=== PATIENT | female | born 1955 | race Caucasian/White ===

== ENCOUNTER 2020-08-29 06:02 | Inpatient (IN) | payer BC ==
[~2020-08-29] VITALS: Ht 157.5 cm; Wt 91.7 kg
[2020-08-29] MEDS ORDERED: ACETAMINOPHEN IV 1000 MG/100ML (10MG/ML) IV ONE (06:45)
[2020-08-29] MEDS ORDERED: PREGABALIN CAPSULE 75 MG CAP PO ONE (06:45)
[2020-08-29] MEDS ORDERED: CELECOXIB 100 MG CAP PO ONE (06:45)
[2020-08-29] MEDS ORDERED: VANCOMYCIN HCL 1000 MG VL ONE ×2 (07:12→07:28)
[2020-08-29] MEDS ORDERED: GENTAMICIN SULF 80 MG/2 ML VIAL ONE (07:12)
[2020-08-29] MEDS ORDERED: PROPOFOL 10 MG/ML 20 ML IV ONE (07:24)
[2020-08-29] MEDS ORDERED: MIDAZOLAM HCL 1MG/1ML-2 ML VIAL ONE (07:24)
[2020-08-29] MEDS ORDERED: fentaNYL CITRATE 100 MCG/2 ML VL ONE ×3 (07:24→13:06)
[2020-08-29] MEDS ORDERED: TRANEXAMIC ACID 20 ML ONE (07:27)
[2020-08-29] MEDS ORDERED: BUPIVACAINE 0.25% INJ 50ML VIAL ONE (07:27)
[2020-08-29] MEDS ORDERED: EPINEPHrine HCL 1 MG/1 ML AMP ONE (07:33)
[2020-08-29] MEDS ORDERED: ROCURONIUM 10MG/ML 10ML VIAL IV ONE (07:51)
[2020-08-29] MEDS ORDERED: CLINDAMYCIN 900MG IV 50 ML IV ONE (08:19)
[2020-08-29] MEDS ORDERED: MORPHINE SULFATE 4 MG/ML SYR/VIAL IV PRN (09:30)
[2020-08-29] MEDS ORDERED: ONDANSETRON HCL 4 MG/2 ML VIAL IV PRN ×2 (09:30→10:00)
[2020-08-29] MEDS ORDERED: hydrALAZINE HCL 20 MG/ML VL IV PRN (09:30)
[2020-08-29] MEDS ORDERED: ePHEDrine SULFATE 50 MG/ML AMP IV PRN (09:30)
[2020-08-29] MEDS ORDERED: MORPHINE SULF(PF) 0.5MG/ML 10ML VIAL ONE (09:46)
[2020-08-29] MEDS ORDERED: ceFAZolin 1GM/50ML 50 ML IV SCH (10:00)
[2020-08-29] MEDS ORDERED: HYDROcodone-ACET 10/325MG TAB PO PRN (10:00)
[2020-08-29] MEDS ORDERED: HYDROmorphone HCL 2 MG/ML VL IV PRN (10:00)
[2020-08-29] MEDS ORDERED: BISACODYL 5 MG EC TAB PO PRN (10:00)
[2020-08-29] MEDS ORDERED: ACETAMINOPHEN 325 MG TAB PO PRN (10:00)
[2020-08-29] MEDS ORDERED: ePHEDrine SULFATE 50 MG/ML AMP ONE (13:11)
[2020-08-29 15:30] VITALS: BP 113/45
--- NOTE | 2020-08-29 15:30 | NUR ---
MS admit from OR NEERU EMMANUEL admitted to tele/MS after SBAR received. Patient oriented to ENA SANTACRUZRN primary RN, unit, room, bed, and unit policies regarding patient care and visiting hours. Bed in lowest/locked position, bed rails up x2, call light within reach. Patient weighed by bedscale and encouraged to call if they need something. All questions and concerns addressed, patient verbalized understanding.
[2020-08-29] MEDS ORDERED: INFLUENZA QUAD 2020-2021 0.5 ML SYRG IM ONE (16:15)
[2020-08-29 17:00] VITALS: BP 113/45
[2020-08-29] MEDS: KETOROLAC TROMETH 30 MG/ML 1ML VIAL IV SCH ×2 (17:32→22:30)
--- NOTE | 2020-08-29 19:30 | NUR ---
Opening Shift Note Assumed care of patient. Pt is awake and alert, oriented X 4. No S/S of respiratory distress noted. Pt denies pain at this time. Bed in lowest and locked position, side rails up X 2, call light is within reach. Huddleston is patent and intact, below the bladder level. POC discussed and pt instructed to call for assistance as needed. Will continue to monitor for changes Q1hr and PRN.
--- NOTE | 2020-08-29 19:55 | NUR ---
Diet and IV fluid Pt drinks water and tolerated dinner well. No abdominal distress, no pain. BSs are active. IV fluid locked.
[2020-08-29 20:00] VITALS: BP 110/51
[2020-08-29] MEDS: LACTATED RINGER'S 1,000 ML IV SCH (20:00)
[2020-08-29 22:00] VITALS: BP 110/51
[2020-08-29] MEDS: DOCUSATE SOD 100 MG CAP PO SCH (22:00)
[2020-08-30] MEDS: KETOROLAC TROMETH 30 MG/ML 1ML VIAL IV SCH ×4 (04:00→22:05)
[2020-08-30 04:46] VITALS: BP 117/47
[2020-08-30 05:46] LABS: Basophils # (auto) 0 10 ^3/uL (0-0.2); Basophils % (auto) 0.5 % (0.0-2.0); Eosinophils # (auto) 0.2 10 ^3/uL (0-0.8); Eosinophils % (auto) 2.3 % (0.0-7.0); Hematocrit 32.8 % (36.0-46.0); Hemoglobin 10.9 g/dL (12.2-16.2); Lymphocytes # (auto) 1.2 10 ^3/uL (0.4-5.4); Lymphocytes % (auto) 17.5 % (10.0-50.0); Mean Corpuscular Hemoglobin 30.1 pg (28.0-32.0); Mean Corpuscular Hgb Conc. 33.4 g/dL (32.0-36.0); Mean Corpuscular Volume 90.1 fL (80.0-100.0); Monocytes # (auto) 0.7 10 ^3/uL (0-1.3); Monocytes % (auto) 10.9 % (0.0-12.0); Neutrophils # (auto) 4.6 10 ^3/uL (1.6-8.6); Neutrophils % (auto) 68.8 % (37.0-80.0); Platelet Count (auto) 197 10^3/uL (140-450); Red Blood Cells 3.64 10^6/uL (4.0-5.20); Red Cell Distribution Width 14.8 % (11.8-14.3); White Blood Cell 6.7 10^3/uL (4.4-10.8)
[2020-08-30] MEDS: LACTATED RINGER'S 1,000 ML IV SCH ×2 (06:00→16:00)
[2020-08-30 06:09] LABS: Potassium 3.6 mmol/L (3.5-5.1)
[2020-08-30 06:14] LABS: Calcium 7.6 mg/dL (8.5-10.1)
--- NOTE | 2020-08-30 06:27 | NUR ---
Huddleston D/Cd. Huddleston D/Cd per dr's order. Patient tolerated well. Educated regarding post Huddleston care and instructed to inform a nurse about first voiding. Will continue to monitor and continue care.
--- NOTE | 2020-08-30 07:10 | NUR ---
Opening Shift Note Assumed care of patient, awake and alert. No S/S of distress/SOB or pain. Instructed on POC and to call for assist PRN, will continue to monitor for changes Q1hr and PRN.
[2020-08-30 09:00] VITALS: BP 118/56
[2020-08-30] MEDS: HYDROcodone-ACET 10/325MG TAB PO PRN ×3 (09:16→20:14)
[2020-08-30] MEDS: RIVAROXABAN 10 MG TAB PO SCH (10:29)
[2020-08-30] MEDS: DOCUSATE SOD 100 MG CAP PO SCH ×2 (10:30→22:05)
[2020-08-30 13:00] VITALS: BP 97/58
[2020-08-30 16:49] VITALS: BP 103/51
[2020-08-30 22:59] VITALS: BP 118/62
--- NOTE | 2020-08-30 23:38 | NUR ---
ROUNDS Patient is resting in bed with eyes closed. Respirations are even and non-labored. No distress noted. Call light is within reach. Will continue to monitor for changes PRN.
--- NOTE | 2020-08-31 00:07 | NUR ---
ROOM CHANGE Patient move from room 223-B to room 215-A with all personal belongings. No distress noted.
[2020-08-31] MEDS: LACTATED RINGER'S 1,000 ML IV SCH ×2 (02:00→12:00)
[2020-08-31] MEDS: KETOROLAC TROMETH 30 MG/ML 1ML VIAL IV SCH ×2 (03:50→10:51)
--- NOTE | 2020-08-31 04:00 | NUR ---
ROUNDS Patient is resting in bed with eyes closed. Easily aroused by verbal stimulation. denies pain at this time. Scheduled medications administered as ordered. Will continue to monitor for changes PRN.
[2020-08-31 05:00] VITALS: BP 129/47
--- NOTE | 2020-08-31 06:14 | NUR ---
ROUNDS Patient is resting in bed with eyes closed. Respirations are even and non-labored. No distress noted at this time.
[2020-08-31] MEDS: HYDROcodone-ACET 10/325MG TAB PO PRN (08:30)
[2020-08-31 08:42] VITALS: BP 121/59
[2020-08-31] MEDS: RIVAROXABAN 10 MG TAB PO SCH (10:51)
[2020-08-31] MEDS: DOCUSATE SOD 100 MG CAP PO SCH (10:51)
--- NOTE | 2020-08-31 11:02 | NUR ---
Import Specialist Consult This RN spoke to [facility] pillowcase folder suction operator regarding PT at the home for the pt. after discharge. [employer] is working on it with Pt's insurance.
[2020-08-31 13:00] VITALS: BP 137/56
[2020-08-31 13:29] VITALS: BP 137/56
--- NOTE | 2020-08-31 14:40 | NUR ---
Discharge instructions given as ordered. Encourage to follow up with PMD as instructed. All questions and concerns addressed. Patient verbalized understanding. Medication reconciliation form completed and copy given to patient. IV removed with catheter intact and pressure dressing applied. Patient taken to vehicle via wheelchair with all personal belongings, accompanied by staff. No distress noted at time of departure.
--- NOTE | 2020-09-01 12:55 | NUR ---
Weekend transportation maintenance specialist-08/31/20 1000 I received a page from nurse Osuna letting me know that this patient is to discharge home with home health for PT. I spoke with [facility] Corn Husker Machine Operator Angie, she verified that it can be sent to [facility] (she spoke with them and they will be able to accept patient). I asked nurse Yang to fax face sheet, order and H&P to [facility] and to [facility]. Provided nurse Yang with phone number for [facility] to give to patient. Per Angie at [facility] she will provide authorization to [facility].
== END 2020-08-31 14:40 | disposition home health service (06) | DRG 470 ==
LOC: OVERFLOW 06:02 → EDSTATUS 06:45 → CENTRAL 15:30
PROVIDERS: ADMIT Orthopaedic Surgery; ATTEND Orthopaedic Surgery
PROC: 0SR906Z Replacement of Right Hip Joint with Oxidized Zirconium on Polyethylene Synthetic Substitute, Open Approach (ICD-10-PCS; principal; 2020-08-29 07:45)
DX: M16.11 Unilateral primary osteoarthritis, right hip (principal); D62 Acute posthemorrhagic anemia; Z96.641 Presence of right artificial hip joint; Z20.828 Contact with and (suspected) exposure to other viral communicable diseases; Z88.1 Allergy status to other antibiotic agents; Z82.49 Family history of ischemic heart disease and other diseases of the circulatory system; Z88.0 Allergy status to penicillin
CPT/HCPCS: 36415; 72170; 80048; 85025; 86850; 86900; 86901; A4565; G0378; J0131; J0171; J0690; J1885; J2250; J2704; J3490

== ENCOUNTER 2024-11-04 08:09 | Emergency (ER) | payer BC, MEDICARE ==
[~2024-11-04] VITALS: Ht 157.5 cm; Wt 84.5 kg
[2024-11-04 09:41] VITALS: BP 151/62; PULSE 72; RESP 15; TEMP 98.4; O2SAT 96
[2024-11-04] MEDS ORDERED: DOXY-286 PO (09:46)
[2024-11-04] MEDS ORDERED: IBUP1TAB5 PO (09:46)
[2024-11-04] MEDS ORDERED: METH4PAK PO (09:46)
--- NOTE | 2024-11-04 09:47 | ED.PDOC ---
Back pain HPI HPI Comments 69 year old presents for URI symptoms C/o tenderness to the frontal sinuses Also c/o ear pain and sinus pressure Symptoms started 2 weeks ago Worsens when leaning forward Has tried OTC antihistamines with minimal improvement Denies diplopia Denies CP/SOB Chief Complaint: Face pain Time Seen by MD: 08:53 Primary Care Provider: HARIS Reviewed Notes: Nurses Notes, Medications, Allergies Allergies: Coded Allergies: Erythromycin (Verified Allergy, Unknown, 08/25/20) Penicillins (Verified Allergy, Unknown, 08/25/20) Home Meds Active Scripts Doxycycline Hyclate (DOXYCYCLINE HYCLATE) 100 Mg Tab, 1 TAB PO BID for 7 Days, #14 TAB 0 Refills Prov:SAMRA STOLL ICING COATER 11/04/24 Ibuprofen Micronized (Ibuprofen) 600 Mg Tab, 600 MG PO TID for 10 Days, #30 TAB 0 Refills Prov:SAMRA STOLL NP 11/04/24 Methylprednisolone (Medrol Dosepak) 4 Mg Stu, 4 MG PO UD, #21 TAB UAD Prov:SAMRA STOLL ICING COATER 11/04/24 Information Source: Patient Mode of Arrival: Ambulatory Family History Family History: Reviewed,noncontributory to illness Social History Smoker: Non-Smoker Alcohol: Denies ETOH Use Drugs: Denies Drug Use All Other Systems: Reviewed and Negative (Per HPI) Physical Exam General Appearance: No Apparent Distress, Normal HEENT: Head (Normocephalic ), Normal ENT Inspection, Pharynx Normal, TMs Normal, Other (Maxillary tenderness to palpation.) Neck: Full Range of Motion, Non-Tender, Normal, Normal Inspection Respiratory: Chest Non-Tender, Lungs Clear, No Accessory Muscle Use, No Respiratory Distress, Normal Breath Sounds Cardiovascular: No Edema, No JVD, No Murmur, No Gallop, Normal Peripheral Pulses, Regular Rate/Rhythm Breast Exam: Deferred Gastrointestinal: No Organomegaly, Non Tender, No Pulsatile Mass, Normal Bowel Sounds, Soft Genitalia: Deferred Pelvic: Deferred Rectal: Deferred Extremities: No calf tenderness, Normal capillary refill, Normal inspection, Normal range of motion, Non-tender, No pedal edema Musculoskeletal : Apperance: Normal Neurologic: Alert, No Motor Deficits, Normal Affect, Normal Mood, No Sensory Deficits Cerebellar Function: Normal Reflexes: Normal Skin: Dry, Normal Color, Warm Lymphatic: No Adenopathy Was a procedure done? Was a procedure done?: No Images 1 - localized swelling. no crepitus. no erythema. no TTP. Full ROM. Back Pain Differential Dx Differential Diagnosis: Other X-Ray, Labs, Meds, VS Vital Signs Date Time Temp Pulse Resp B/P (MAP) Pulse Ox O2 Delivery O2 Flow Rate FiO2 11/04/24 09:41 72 15 96 Room Air 11/04/24 09:41 98.4 72 15 151/62 (91) 96 98.4 11/04/24 08:24 98.4 72 15 151/62 (91) 96 X-Ray, Labs, Meds, VS Comment Prescribed p.o. antibiotics for presentation of symptoms Complete course of antibiotic therapy even if symptoms improve or resolve. There should be no leftover antibiotics as this can lead to antibiotic resistant bacteria and even worse infection. Patient verbalized understanding. Potential side effects discussed with patient including abdominal pain, nausea, diarrhea. Patient is stable for discharge at this time. External notes reviewed. Test results and diagnostic imaging interpreted. All diagnostic findings, discharge care, education and instructions provided Follow-up with PCP in 2 to 3 days Patient verbalized understanding and agreed to treatment plan Vital signs stable, afebrile, no acute distress noted Patient ambulatory with strong steady gait Advised to return precautions for any new or worsening symptoms, return to ER immediately for re-evaluation Patient is aware that the purpose of this visit was for an acute medical emergency requiring emergent stabilization. Chronic conditions, including malignancies have not been ruled out. Patient is instructed to follow up with PCP as directed and discharge instructions for continued care and workup. If unable to arrange follow-up, patient is to return to the emergency department for reassessment. Patient (parent or legal guardian if applicable) was given verbal and written discharge instructions and acknowledges understanding. Time of 1ST Reevaluation: 09:40 Reevaluation 1ST: Improved Patient Education/Counseling: Diagnosis, Treatment Family Education/Counseling: Diagnosis, Treatment Departure 1 Departure Time of Disposition: 09:46 Impression: Primary Impression: Sinusitis Qualified Codes: J01.90 - Acute sinusitis, unspecified Disposition: HOME / SELF CARE / HOMELESS Condition: Stable e-Prescriptions Doxycycline Hyclate (DOXYCYCLINE HYCLATE) 100 Mg Tab 1 TAB PO BID for 7 Days, #14 TAB 0 Refills Prov: SAMRA STOLL NP 11/04/24 Ibuprofen Micronized (Ibuprofen) 600 Mg Tab 600 MG PO TID for 10 Days, #30 TAB 0 Refills Prov: SAMRA STOLL NP 11/04/24 Methylprednisolone (Medrol Dosepak) 4 Mg Stu 4 MG PO UD, #21 TAB UAD Prov: SAMRA STOLL NP 11/04/24 Discharged With: Self Critical Care Note Critical Care Time?: No Stability Stability form required: No Heart Score Heart Score: Heart Score Response (Comments) Value History N/A 0 EKG N/A 0 Age N/A 0 Risk Factors N/A 0 Troponin N/A 0 Total 0 SAMRA STOLL ICING COATER Nov 04, 2024 09:47
== END 2024-11-04 09:52 | disposition home or self-care (01) ==
LOC: ER 08:09
DX: J32.9 Chronic sinusitis, unspecified (principal); Z79.899 Other long term (current) drug therapy; Z88.0 Allergy status to penicillin; Z88.1 Allergy status to other antibiotic agents